=== PATIENT | female | born 1940 | race Hispanic/Latino ===

== ENCOUNTER 2016-10-30 10:11 | Outpatient (CLI) | payer MEDICARE, OTHER ==
--- NOTE | 2016-10-30 16:11 | Mammography Report ---
BILATERAL DIGITAL SCREENING MAMMOGRAM with CAD : 10/30/16 10:11:00 CLINICAL: Routine screening.Known left breast cysts. COMPARISON:11/17/15 FINDINGS: The breasts are heterogeneously dense, which may obscure small masses. No mass, architectural distortion or suspicious calcifications. IMPRESSION: No mammographic evidence of malignancy. BI-RADS CATEGORY: 2 -- Benign RECOMMENDATION: Routine mammographic screening in one year. COMMENT: Patient follow-up letters are generated by our [employer] application.
== END 2016-10-30 10:12 | disposition home or self-care (01) ==
LOC: MAMMO 10:11
PROVIDERS: ATTEND Internal Medicine
DX: Z12.31 Encounter for screening mammogram for malignant neoplasm of breast (principal)
CPT/HCPCS: 77067; G0202

== ENCOUNTER 2017-11-02 09:19 | Outpatient (CLI) | payer MEDICARE, OTHER ==
--- NOTE | 2017-11-02 10:45 | Mammography Report ---
BILATERAL MAMMOGRAM: FINDINGS: The breast tissue is heterogeneously dense, which could obscure detection of small masses (approximately 50%-75% glandular). No mass, distortion, suspicious calcification, or skin change is seen. Surgical clips in the right breast. No interval change compared to prior exam in October 2016. CAD was utilized. IMPRESSION: Negative mammogram. There is no mammographic evidence of malignancy. RECOMMENDATION: Follow-up per ACS guidelines. BI-RADS CATEGORY: 1 = Negative ACR BI-RADS MAMMOGRAPHIC CODES: 0 = Needs additional imaging evaluation; 1 = Negative; 2 = Benign; 3 = Probably benign; 4 = Suspicious; 5 = Malignant; 6 = Known biopsy-proven malignancy COMMENT: 1. Dense breast tissue, i.e., adenosis, fibrocystic changes, etc., may obscure an underlying neoplasm. 2. Approximately 10% of cancers are not detected with mammography. 3. A negative mammography report should not delay biopsy if a clinically suspicious mass is present. COMMENT: Patient follow-up letters are generated in [employer].
== END 2017-11-02 09:20 | disposition home or self-care (01) ==
LOC: MAMMO 09:19
PROVIDERS: ATTEND Internal Medicine
DX: Z12.31 Encounter for screening mammogram for malignant neoplasm of breast (principal)
CPT/HCPCS: 77067

== ENCOUNTER 2019-01-10 08:11 | Outpatient (CLI) | payer MEDICARE, OTHER ==
[2019-01-10 11:27] LABS: Hematocrit 41.4 % (30.3-42.9); Hemoglobin 14.1 gm/dl (10.1-14.3); Mean Corpuscular HGB Conc 34 % (30-34); Mean Corpuscular Volume 89 fl (79-97); Platelet Count 126 K/mm3 (140-440); Red Blood Count 4.67 M/mm3 (3.65-5.03); Red Cell Distribution Width 14.3 % (13.2-15.2)
[2019-01-10 11:44] LABS: Alanine Aminotransferase 7 units/L (7-56); Albumin 4.2 g/dL (3.9-5); BUN/Creatinine Ratio 35; Blood Urea Nitrogen 14 mg/dL (7-17); Calcium 8.8 mg/dL (8.4-10.2); Chol/HDL Ratio 2.21 %; HDL Cholesterol 57 mg/dL (40-59); Hemolysis Index 7; LDL Cholesterol,Direct 67 mg/dL (50-130)
[2019-01-17 11:32] LABS: Vitamin D, 25-OH, D2 SEE SCANNED RESULTS
== END 2019-01-10 08:12 | disposition home or self-care (01) ==
LOC: LAB 08:11
PROVIDERS: ATTEND Internal Medicine
DX: Z00.01 Encounter for general adult medical examination with abnormal findings (principal); I10 Essential (primary) hypertension; E78.5 Hyperlipidemia, unspecified; G45.9 Transient cerebral ischemic attack, unspecified; E78.00 Pure hypercholesterolemia, unspecified; R79.89 Other specified abnormal findings of blood chemistry
CPT/HCPCS: 36415; 80053; 80061; 82306; 82607; 83036; 84443; 85027

== ENCOUNTER 2019-02-05 10:02 | Outpatient (CLI) | payer MEDICARE, OTHER ==
--- NOTE | 2019-02-05 13:47 | Mammography Report ---
BONE DEXA:02/05/19 CLINICAL: Postmenopausal. No comparison. TECHNIQUE: Two site bone DEXA performed on an Hologic scanner. FINDINGS: The average BMD of the lumbar spine L1-L4 is 0.911g/cm squared with a T-score of -1.2 and a Z-score of +1.5. The average BMD of the left hip is 0.749g/cm squared with a T-score of -1.6 and a Z-score of +0.5. IMPRESSION: 1. WHO classification: Osteopenia with increased fracture risk based on both spine and left hip measurements. 2. The FRAX 10 year fracture probability for a major osteoporotic fracture is 16%. 3. The FRAX 10 year fracture probability for hip fracture is 5.2%. Note: FRAX version 3.01. Fracture probability calculated for an untreated patient. Fracture probability may be lower if the patient has received treatment. RECOMMENDATION: Clinical correlation and routine screening. DEFINITIONS: BMD = Bone Mineral Density T-score = BMD related to mean peak bone mass of young adult (mean expressed in Standard Deviation) Z-score = Age matched BMD expressed in SD World Health Organization (WHO) Diagnostic Criteria Normal T-score > -1 SD Osteopenia T-score between -1 and -2.4 SD Osteoporosis T-score -2.5 SD or below NOTE: BMD is not the only risk factor for fracture; also consider factors such as the patient's age, risk of falling, previous osteoporotic fracture, family history of osteoporotic fractures, current smoker, and low body weight. All treatment decisions require clinical judgment and consideration of individual patient factors, including patient preferences, comorbidities, previous drug use and risk factors not captured in the FRAX model (e.g. frailty, falls, vitamin D deficiency, increased bone turnover, interval significant decline in BMD). Fracture probability is calculated for an untreated patient. Fracture probability may be lower if the patient has received treatment. Z-scores are not calculated if >80 years of age.
== END 2019-02-05 10:03 | disposition home or self-care (01) ==
LOC: MAMMO 10:02
PROVIDERS: ATTEND Internal Medicine
DX: M85.88 Other specified disorders of bone density and structure, other site (principal); M81.0 Age-related osteoporosis without current pathological fracture; E78.00 Pure hypercholesterolemia, unspecified; Z78.0 Asymptomatic menopausal state
CPT/HCPCS: 77080

== ENCOUNTER 2019-08-25 10:26 | Outpatient (CLI) | payer MEDICARE, OTHER ==
--- NOTE | 2019-08-25 11:02 | XRay Report ---
XR knee 1-2V RT INDICATION / CLINICAL INFORMATION: PAIN IN RIGHT KNEE. COMPARISON: None available. FINDINGS: BONES/JOINT(S): No acute fracture or subluxation. Mild tricompartmental DJD. No significant joint eff usion. No aggressive appearing bone lesion. SOFT TISSUES: No significant abnormality. ADDITIONAL FINDINGS: None. Signer Name: Stanley Mayorga MD Signed: 08/25/2019 10:58 AM Workstation Name: [id number]
== END 2019-08-25 10:27 | disposition home or self-care (01) ==
LOC: XRAY 10:26
PROVIDERS: ATTEND Internal Medicine
DX: M17.11 Unilateral primary osteoarthritis, right knee (principal)

== ENCOUNTER 2019-09-11 08:57 | Outpatient (CLI) | payer MEDICARE, OTHER | END 2019-09-11 08:58 | disposition home or self-care (01) | LOC: LAB 08:57 | PROVIDERS: ATTEND Internal Medicine | DX: N39.0 Urinary tract infection, site not specified (principal); R73.03 Prediabetes; E78.5 Hyperlipidemia, unspecified | CPT/HCPCS: 36415; 80061; 81001; 83036; 87076; 87086; 87186 ==

== ENCOUNTER 2019-11-10 10:19 | Outpatient (CLI) | payer MEDICARE, OTHER ==
--- NOTE | 2019-11-10 15:37 | Mammography Report ---
DIGITAL SCREENING MAMMOGRAM WITH CAD, 11/10/2019 INDICATION: Routine screening mammography. TECHNIQUE: Digital bilateral 2D mammography was obtained in the craniocaudal and mediolateral obliq ue projections. This examination was interpreted with the benefit of Computer-Aided Detection analysi s. COMPARISON: 11/07/2018 FINDINGS: Breast Density: The breasts are heterogeneously dense, which may obscure small masses. There is no evidence of dominant mass, suspicious calcifications or architectural distortion in eithe r breast. 2 right periareolar surgical clips. IMPRESSION: No mammographic evidence of malignancy. Follow up recommendation: Routine yearly BI-RADS Category 2: Benign. A "normal" or negative report should not discourage follow up or biopsy of a clinically significant f inding. A written summary of these findings will be mailed to the patient. The patient will be entered into a mammography reporting system which will generate a reminder letter for the patient's next appointmen t at the appropriate interval. The [employer] recommends yearly mammograms starting at age 40 and continuing as l milka as a woman is in good health. Breast MRI is recommended for women with an approximate 20-25% or greater lifetime risk of breast cancer, including women with a strong family history of breast or ova niki cancer or who have been treated for Hodgkin's disease. Signer Name: Mert Noe MD Signed: 11/10/2019 3:33 PM Workstation Name: [id number]
== END 2019-11-10 10:20 | disposition home or self-care (01) ==
LOC: MAMMO 10:19
PROVIDERS: ATTEND Internal Medicine
DX: Z12.31 Encounter for screening mammogram for malignant neoplasm of breast (principal)
CPT/HCPCS: 77067

== ENCOUNTER 2020-11-11 10:49 | Outpatient (CLI) | payer MEDICARE, OTHER ==
--- NOTE | 2020-11-11 11:52 | Mammography Report ---
DIGITAL SCREENING MAMMOGRAM WITH CAD, 11/11/2020 CLINICAL INFORMATION / INDICATION: Routine screening mammography. TECHNIQUE: Digital bilateral 2D mammography was obtained in the craniocaudal and mediolateral obliqu e projections. This examination was interpreted with the benefit of Computer-Aided Detection analysis . COMPARISON: 11/10/2019, 11/07/2018 FINDINGS: Breast Density: The breasts are heterogeneously dense, which may obscure small masses. No dominant mass, suspicious calcifications, or architectural distortion in either breast. Right breast postoperative changes and bilateral benign-appearing calcifications are unchanged. IMPRESSION: No mammographic evidence of malignancy. Follow up recommendation: Routine yearly BI-RADS Category 2: Benign. A "normal" or negative report should not discourage follow up or biopsy of a clinically significant f inding. A written summary of these findings will be mailed to the patient. The patient will be entered into a mammography reporting system which will generate a reminder letter for the patient's next appointmen t at the appropriate interval. The [employer] recommends yearly mammograms starting at age 40 and continuing as l milka as a woman is in good health. Breast MRI is recommended for women with an approximate 20-25% or greater lifetime risk of breast cancer, including women with a strong family history of breast or ova niki cancer or who have been treated for Hodgkin's disease. Signer Name: Freddy Gaspar MD Signed: 11/11/2020 11:47 AM Workstation Name: [id number]
== END 2020-11-11 10:50 | disposition home or self-care (01) ==
LOC: MAMMO 10:49
PROVIDERS: ATTEND Internal Medicine
DX: Z12.31 Encounter for screening mammogram for malignant neoplasm of breast (principal)
CPT/HCPCS: 77067

== ENCOUNTER 2021-01-20 10:20 | Outpatient (CLI) | payer MEDICARE, OTHER ==
--- NOTE | 2021-01-21 12:29 | Cat Scan Report ---
CT ABDOMEN AND PELVIS WITHOUT IV CONTRAST INDICATION: URINARY TRACT INFECTION, SITE NOT SPECIFIED. COMPARISON: None available. TECHNIQUE: All CT scans at this facility use dose modulation, automated exposure control, iterative reconstructi on or weight based dosing, when appropriate, to reduce radiation dose to as low as reasonably achieva ble. FINDINGS: Lung Bases: No acute abnormality. There is a 2-3 mm nodule in the inferior lingula axial image 14. At electatic changes are noted in the bases. Skeletal System: No acute abnormality. ABDOMEN: Liver: No significant abnormality. Gallbladder: No significant abnormality. Bile Ducts: No significant abnormality. Pancreas: No significant abnormality. Spleen: No acute abnormality. 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 Adrenals: No significant abnormality. Right Kidney: No significant abnormality. Left Kidney: No acute abnormality. There is a single lower pole calyceal stone which measures 6 mm. Upper GI tract: There is a 1.7 cm lipomatous lesion within the gastric cardia (axial image 32). Lymph Nodes: No significant adenopathy. Aorta: No significant abnormality. Additional Findings: Within the right upper quadrant between the duodenal bulb and left lobe there is a peripherally calcified 1.8 cm hypodensity. This may be a peripherally calcified exophytic hepatic cyst. PELVIS: Colon: No acute abnormality. Diverticulosis is noted. Urinary Bladder and Distal Ureters: No significant abnormality. Appendix: No significant abnormality. Lymph Nodes: No significant adenopathy. Additional Findings: None. IMPRESSION: 1. Within the limitations of non contrast technique, no acute process in the abdomen or pelvis. 2. 1.8 cm peripherally calcified hypodensity in the right upper quadrant appears to be an exophytic cyst arising from the left lobe of the liver rather than a diverticulum arising from the adjacent duo denal bulb. 3. Additional incidental findings as above. Signer Name: Noe Mclain MD Signed: 01/20/2021 11:12 AM Workstation Name: [id number]
== END 2021-01-20 10:21 | disposition home or self-care (01) ==
LOC: SPVIMAG 10:20
PROVIDERS: ATTEND Urology
DX: K57.90 Diverticulosis of intestine, part unspecified, without perforation or abscess without bleeding (principal); N20.0 Calculus of kidney; N39.0 Urinary tract infection, site not specified
CPT/HCPCS: 74176

== ENCOUNTER 2021-12-08 11:35 | Outpatient (CLI) | payer MEDICARE, OTHER ==
--- NOTE | 2021-12-08 15:55 | Mammography Report ---
DIGITAL SCREENING MAMMOGRAM WITH CAD, 12/08/2021 CLINICAL INFORMATION / INDICATION: Routine screening mammography. SCREENING MAMMOGRAM TECHNIQUE: Digital bilateral 2D mammography was obtained in the craniocaudal and mediolateral obliqu e projections. This examination was interpreted with the benefit of Computer-Aided Detection analysis . COMPARISON: 11/11/2020 and 11/10/2019 FINDINGS: Breast Density: The breasts are heterogeneously dense, which may obscure small masses. No dominant mass, suspicious calcifications, or architectural distortion in either breast. Biopsy change again seen on the right. IMPRESSION: No mammographic evidence of malignancy. Follow up recommendation: Routine yearly BI-RADS Category 2: BENIGN. A "normal" or negative report should not discourage follow up or biopsy of a clinically significant f inding. A written summary of these findings will be mailed to the patient. The patient will be entered into a mammography reporting system which will generate a reminder letter for the patient's next appointmen t at the appropriate interval. The [employer] recommends yearly mammograms starting at age 40 and continuing as l milka as a woman is in good health. Breast MRI is recommended for women with an approximate 20-25% or greater lifetime risk of breast cancer, including women with a strong family history of breast or ova niki cancer or who have been treated for Hodgkin's disease. Signer Name: Ran Cleaning MD Signed: 12/08/2021 3:50 PM Workstation Name: [id number]
== END 2021-12-08 11:36 | disposition home or self-care (01) ==
LOC: MAMMO 11:35
PROVIDERS: ATTEND Internal Medicine
DX: Z12.31 Encounter for screening mammogram for malignant neoplasm of breast (principal); N64.89 Other specified disorders of breast
CPT/HCPCS: 77067

== ENCOUNTER 2022-05-10 09:46 | Outpatient (CLI) | payer OTHER, MEDICARE ==
[2022-05-10 12:53] LABS: Basophils % (Auto) 0.7 % (0.0-1.8); Eosinophils # (Auto) 0.1 K/mm3 (0.0-0.4); Eosinophils % (Auto) 1.2 % (0.0-4.3); Hematocrit 44.9 % (30.3-42.9); Hemoglobin 14.4 gm/dl (10.1-14.3); Lymphocytes # (Auto) 2.2 K/mm3 (1.2-5.4); Lymphocytes % (Auto) 39.5 % (13.4-35.0); Mean Corpuscular HGB Conc 32 % (30-34); Mean Corpuscular Volume 92 fl (79-97); Monocytes # (Auto) 0.4 K/mm3 (0.0-0.8); Monocytes % (Auto) 6.8 % (0.0-7.3); Platelet Count 129 K/mm3 (140-440); Red Blood Count 4.88 M/mm3 (3.65-5.03); Red Cell Distribution Width 14.2 % (13.2-15.2)
[2022-05-10 13:15] LABS: Alanine Aminotransferase 13 units/L (7-56); Albumin 4.5 g/dL (3.9-5); Blood Urea Nitrogen 14 mg/dL (7-17); Calcium 9.2 mg/dL (8.4-10.2); Chol/HDL Ratio 2.16 %; HDL Cholesterol 65 mg/dL (40-59); Hemolysis Index 13; LDL Cholesterol,Direct 66 mg/dL (50-130)
[2022-05-10 13:18] LABS: BUN/Creatinine Ratio 35
== END 2022-05-10 09:47 | disposition home or self-care (01) ==
LOC: LABHHL 09:46
PROVIDERS: ATTEND Internal Medicine
DX: I10 Essential (primary) hypertension (principal); E55.9 Vitamin D deficiency, unspecified; E78.5 Hyperlipidemia, unspecified; R73.03 Prediabetes; R53.83 Other fatigue
CPT/HCPCS: 36415; 80053; 80061; 83036; 84443; 85025